=== PATIENT | male | born 1985 | race Caucasian/White ===

== ENCOUNTER 2017-03-11 19:23 | Emergency (ER) | payer OTHER ==
[~2017-03-11] VITALS: Ht 182.9 cm; Wt 95.3 kg
[~2017-03-11 19:23] MED LIST: ACETAMINOPHEN-1 EAC1 PO; AFRIN15 ML NS; ALLEGRA ALLERG180 MG PO; AMOXICILLIN 50500 MG PO; AMOXICILLIN500 M1 PO; ASPIRIN325; AZITHROMYCIN 2250 MG PO; CARISOPRODOL 3350 MG PO; COUGH DROPS1 EAC1 MM; DIFLUCAN150 MG PO; DOXYCYCLINE 10100 MG PO; FLEXERIL PO; IBUPROFEN 600600 M1 PO; IBUPROFEN 800800 M1 PO; IBUPROFEN 800800 MG PO; KEFLEX250 MG PO; MEDROLDOSEPACK PO; MUCINEX TA600 MG/TA2 PO; NAPROSYN500 MG PO; NOHOMEMEDICATIONS; NORCO 5-325 TA1 EACH PO; PREDNISONE 10 M10 M1 PO; PREDNISONE 20 M20 M1 PO; PROAIR HFA8.5 GM INH; ROBAXIN500 MG PO; ROBITUSSIN100 MG/53 PO; SILVADENE20 GM TP; TORADOL 10 MG T10 MG PO; TRAMADOL 50 MG50 MG PO; ULTRAM 50MG TAB50 MG PO; VENTOLIN HFA 1818 GM INH; VENTOLIN17 GM INH; VIBRAMYCIN 100100 MG PO; VICODIN 5-5001 EACH PO; XANAX 0.5 MG0.5 M1 PO; ZOFRAN 4 MG ORAL4 M1 DIS; ZPAK PO
[2017-03-11 20:37] LABS: ABSOLUTE BASOPHILS 0.1 thou/uL (0.0-0.2); ABSOLUTE EOSINOPHILS 0.6 thou/uL (0.0-0.7); ABSOLUTE LYMPHOCYTES 1.9 thou/uL (0.8-5.3); ABSOLUTE MONOCYTES 0.9 thou/uL (0.0-1.2); BASOPHILS 0.6 %; EOSINOPHILS 5.2 %; HEMATOCRIT 47.9 % (42.0-52.0); HEMOGLOBIN 16.3 gm/dL (14.0-18.0); MCH 31.2 pg (26.0-34.0); MCV 91.7 fL (80.0-100.0); MONOCYTES 7.2 %; MPV 8.5 fl. (7.2-11.1); NUCLEATED RBCS 0 /100WBC; PLATELET COUNT* 210 thou/uL (150-400); RBC 5.22 mil/uL (4.50-6.00); RDW-CV 14.7 % (10.5-14.5); WBC 12.6 thou/uL (4.0-11.0)
[2017-03-11 20:47] LABS: CALCIUM 8.9 mg/dL (8.5-10.1); POTASSIUM 3.5 mmol/L (3.5-5.1)
[2017-03-11 20:57] LABS: ALBUMIN 3.8 g/dL (3.4-5.0); TOTAL BILIRUBIN 0.3 mg/dL (<0.1-1.0); TOTAL PROTEIN 7.6 g/dL (6.4-8.2)
[2017-03-11] MEDS ORDERED: CITRATE OF MAG296 ML PO (21:08)
[2017-03-11 21:23] VITALS: BP 115/74
== END 2017-03-11 21:24 | disposition home or self-care (01) ==
LOC: M.ERS 19:23
PROVIDERS: Physician Assistant
DX: K59.00 Constipation, unspecified (principal); R10.84 Generalized abdominal pain

== ENCOUNTER 2017-04-22 14:53 | Emergency (ER) | payer OTHER ==
[~2017-04-22] VITALS: Ht 182.9 cm; Wt 93.0 kg
[~2017-04-22 14:53] MED LIST changes: +CITRATE OF MAG296 ML PO
[2017-04-22] MEDS ORDERED: BACTRIM DS TAB1 EACH PO ×2 (17:17→17:19)
[2017-04-22] MEDS ORDERED: KEFLEX500 M1 PO ×2 (17:17→17:19)
[2017-04-22] MEDS ORDERED: NORCO 5-325 TA1 EACH PO ×2 (17:17→17:19)
[2017-04-22] MEDS ORDERED: IBUPROFEN 800800 MG PO ×2 (17:17→17:19)
[2017-04-22 17:50] VITALS: BP 122/83
== END 2017-04-22 17:51 | disposition home or self-care (01) ==
LOC: M.ERS 14:53
DX: L03.116 Cellulitis of left lower limb (principal); L02.416 Cutaneous abscess of left lower limb; F17.210 Nicotine dependence, cigarettes, uncomplicated

== ENCOUNTER 2017-06-23 18:43 | Emergency (ER) | payer OTHER ==
[~2017-06-23] VITALS: Ht 182.9 cm; Wt 90.7 kg
[~2017-06-23 18:43] MED LIST changes: +BACTRIM DS TAB1 EACH PO; +KEFLEX500 M1 PO
[2017-06-23 19:25] LABS: ABSOLUTE BASOPHILS 0.1 thou/uL (0.0-0.2); ABSOLUTE EOSINOPHILS 0.7 thou/uL (0.0-0.7); ABSOLUTE LYMPHOCYTES 1.9 thou/uL (0.8-5.3); ABSOLUTE MONOCYTES 0.5 thou/uL (0.0-1.2); BASOPHILS 1.1 %; EOSINOPHILS 9.8 %; HEMATOCRIT 48.3 % (42.0-52.0); HEMOGLOBIN 16.6 gm/dL (14.0-18.0); LYMPHOCYTES 26.6 %; MCH 31.7 pg (26.0-34.0); MCHC 34.4 g/dL (28.0-37.0); MCV 92.2 fL (80.0-100.0); MPV 8.8 fl. (7.2-11.1); NUCLEATED RBCS 0 /100WBC; PLATELET COUNT* 207 thou/uL (150-400); POLYS 55.5 %; RBC 5.24 mil/uL (4.50-6.00); WBC 7.2 thou/uL (4.0-11.0)
[2017-06-23 19:37] LABS: ANION GAP 7 mmol/L (7-16); BUN 12 mg/dL (7-18); CALCIUM 8.7 mg/dL (8.5-10.1); CHLORIDE 106 mmol/L (98-107); CO2 30 mmol/L (21-32); GLUCOSE 89 mg/dL (70-99); SODIUM 143 mmol/L (136-145)
[2017-06-23 19:44] LABS: ALBUMIN 3.9 g/dL (3.4-5.0); ALKALINE PHOSPHATASE 96 U/L (46-116); NT-PRO BRAIN NAT PEPTIDE 8 pg/mL (<300); SGOT 16 U/L (15-37); SGPT 25 U/L (30-65); TOTAL BILIRUBIN 0.6 mg/dL (<0.1-1.0); TOTAL PROTEIN 7.5 g/dL (6.4-8.2); TROPONIN-I LEVEL <0.06 ng/mL (<0.06)
[2017-06-23 20:15] VITALS: BP 117/78
--- NOTE | 2017-06-24 11:17 | EKG ---
[place] [address] ELECTROCARDIOGRAM REPORT Name: FLORENCIO PATTERSON [id number] Admission: 06/23/17 Attend Phys: Discharge: 06/23/17 Date of : [birth year] Report #: [id number] THIS REPORT FOR: //name// [facility] Test Date: 2017-06-23 Test Time: 18:53:38 Pat Name: FLORENCIO PATTERSON Department: Room: Gender: M Air Quality Specialist: ANIRUDH : 1985 Requested By: Sravani Lee Order Number: [id number] MD: Giuliano Celaya Measurements Intervals [place] Rate: 75 P: 5 UT: 114 QRS: 31 QRSD: 90 T: 40 QT: 353 QTc: 395 Interpretive Statements Sinus rhythm Borderline short UT interval Compared to ECG 01/31/2016 08:46:23 Sinus tachycardia no longer present ST (T wave) deviation no longer present Electronically Signed On 06-24-2017 11:17:47 CDT by Giuliano Celaya [email or web address] <ELECTRONICALLY SIGNED> By: Giuliano Celaya MD, [facility] 06/24/17 1117 1853 52 Giuliano Celaya MD, [facility] /EPI
== END 2017-06-23 20:23 | disposition home or self-care (01) ==
LOC: M.ERS 18:43
PROVIDERS: Physician Assistant
DX: R07.9 Chest pain, unspecified (principal); R20.2 Paresthesia of skin; F17.210 Nicotine dependence, cigarettes, uncomplicated

== ENCOUNTER 2017-07-22 07:00 | Emergency (ER) | payer OTHER ==
[~2017-07-22] VITALS: Ht 182.9 cm; Wt 85.7 kg
[2017-07-22] MEDS ORDERED: Magic Mouthwash PO (07:48)
[2017-07-22] MEDS ORDERED: IBUPROFEN 800800 MG PO (07:48)
[2017-07-22 07:53] VITALS: BP 136/91
== END 2017-07-22 07:53 | disposition home or self-care (01) ==
LOC: M.ERS 07:00
DX: J02.9 Acute pharyngitis, unspecified (principal); F17.210 Nicotine dependence, cigarettes, uncomplicated

== ENCOUNTER 2017-08-15 10:32 | Emergency (ER) | payer OTHER ==
[~2017-08-15] VITALS: Ht 182.9 cm; Wt 86.2 kg
[~2017-08-15 10:32] MED LIST changes: +Magic Mouthwash PO
[2017-08-15] MEDS ORDERED: NOHOMEMEDICATIONS (10:41)
[2017-08-15 12:30] VITALS: BP 126/85
== END 2017-08-15 12:31 | disposition home or self-care (01) ==
LOC: M.ERS 10:32
DX: R51 Headache (principal); F17.210 Nicotine dependence, cigarettes, uncomplicated

== ENCOUNTER 2017-08-30 16:13 | Emergency (ER) | payer OTHER ==
[~2017-08-30] VITALS: Ht 182.9 cm; Wt 88.0 kg
[2017-08-30 17:33] LABS: URINE BILIRUBIN NEGATIVE (Negative); URINE BLOOD NEGATIVE (Negative); URINE CLARITY CLEAR; URINE COLOR YELLOW; URINE GLUCOSE-RANDOM NEGATIVE (Negative); URINE KETONES NEGATIVE (Negative); URINE LEUKOCYTES-REFLEX NEGATIVE (Negative); URINE NITRITE-REFLEX NEGATIVE (Negative); URINE PROTEIN NEGATIVE (Negative); URINE UROBILINOGEN 0.2 E.U./dl (0.2-1.0)
[2017-08-30 17:36] LABS: ABSOLUTE BASOPHILS 0.1 thou/uL (0.0-0.2); ABSOLUTE EOSINOPHILS 0.6 thou/uL (0.0-0.7); ABSOLUTE LYMPHOCYTES 2.5 thou/uL (0.8-5.3); ABSOLUTE MONOCYTES 0.5 thou/uL (0.0-1.2); ABSOLUTE NEUTROPHILS 4.2 thou/uL (1.6-8.1); BASOPHILS 0.7 %; EOSINOPHILS 7.4 %; HEMATOCRIT 49.7 % (42.0-52.0); HEMOGLOBIN 16.9 gm/dL (14.0-18.0); LYMPHOCYTES 31.8 %; MCH 31.4 pg (26.0-34.0); MCHC 34.1 g/dL (28.0-37.0); MONOCYTES 6.1 %; MPV 8.6 fl. (7.2-11.1); NUCLEATED RBCS 0 /100WBC; PLATELET COUNT* 221 thou/uL (150-400); WBC 7.8 thou/uL (4.0-11.0)
[2017-08-30 17:47] LABS: CREATININE 0.9 mg/dL (0.6-1.3); POTASSIUM 3.9 mmol/L (3.5-5.1)
[2017-08-30 17:57] LABS: ALBUMIN 4.1 g/dL (3.4-5.0); TOTAL BILIRUBIN 0.4 mg/dL (<0.1-1.0); TOTAL PROTEIN 8.1 g/dL (6.4-8.2)
[2017-08-30 18:12] VITALS: BP 133/74
[2017-08-31 07:07] LABS: HEPATITIS B SURFACE AG Negative (Negative)
== END 2017-08-30 18:12 | disposition home or self-care (01) ==
LOC: M.ERS 16:13
PROVIDERS: Physician Assistant
DX: R53.83 Other fatigue (principal); Z70.8 Other sex counseling; F41.9 Anxiety disorder, unspecified; F17.210 Nicotine dependence, cigarettes, uncomplicated

== ENCOUNTER 2017-09-01 10:47 | Emergency (ER) | payer OTHER ==
[~2017-09-01] VITALS: Ht 182.9 cm; Wt 88.0 kg
[2017-09-01 11:25] LABS: ABSOLUTE BASOPHILS 0.1 thou/uL (0.0-0.2); ABSOLUTE EOSINOPHILS 0.3 thou/uL (0.0-0.7); ABSOLUTE LYMPHOCYTES 1.9 thou/uL (0.8-5.3); ABSOLUTE MONOCYTES 0.4 thou/uL (0.0-1.2); ABSOLUTE NEUTROPHILS 2.4 thou/uL (1.6-8.1); BASOPHILS 1.4 %; EOSINOPHILS 6.4 %; HEMOGLOBIN 16.5 gm/dL (14.0-18.0); LYMPHOCYTES 37.3 %; MCH 31.2 pg (26.0-34.0); MCHC 34.4 g/dL (28.0-37.0); MCV 90.9 fL (80.0-100.0); MONOCYTES 8.2 %; MPV 8.7 fl. (7.2-11.1); NUCLEATED RBCS 0 /100WBC; PLATELET COUNT* 206 thou/uL (150-400); POLYS 46.7 %; RBC 5.28 mil/uL (4.50-6.00); RDW-CV 13.5 % (10.5-14.5); WBC 5.1 thou/uL (4.0-11.0)
[2017-09-01 11:29] LABS: ANION GAP 5 mmol/L (7-16); BUN 18 mg/dL (7-18); CALCIUM 8.9 mg/dL (8.5-10.1); CHLORIDE 104 mmol/L (98-107); CO2 29 mmol/L (21-32); GLUCOSE 92 mg/dL (70-99); POTASSIUM 3.8 mmol/L (3.5-5.1); SODIUM 138 mmol/L (136-145)
[2017-09-01 11:36] LABS: ALBUMIN 3.9 g/dL (3.4-5.0); ALKALINE PHOSPHATASE 107 U/L (46-116); SGOT 21 U/L (15-37); SGPT 22 U/L (30-65); TOTAL BILIRUBIN 0.8 mg/dL (<0.1-1.0); TOTAL PROTEIN 7.7 g/dL (6.4-8.2); TROPONIN-I LEVEL <0.06 ng/mL (<0.06)
[2017-09-01 11:49] LABS: URINE BILIRUBIN NEGATIVE (Negative); URINE BLOOD NEGATIVE (Negative); URINE CLARITY CLEAR; URINE COLOR YELLOW; URINE GLUCOSE-RANDOM NEGATIVE (Negative); URINE KETONES NEGATIVE (Negative); URINE LEUKOCYTES-REFLEX NEGATIVE (Negative); URINE NITRITE-REFLEX NEGATIVE (Negative); URINE PROTEIN NEGATIVE (Negative); URINE SPECIFIC GRAVITY 1.025 (1.005-1.030); URINE UROBILINOGEN 0.2 E.U./dl (0.2-1.0)
[2017-09-01 11:57] LABS: AMP/METHAMP Negative (Negative); BARBITURATES Negative (Negative); BENZODIAZEPINES Negative (Negative); COCAINE Negative (Negative); METHADONE Negative (Negative); OPIATES Negative (Negative); PCP Negative (Negative); THC Negative (Negative)
[2017-09-01 12:31] VITALS: BP 126/79
--- NOTE | 2017-09-03 13:28 | EKG ---
[place] [address] ELECTROCARDIOGRAM REPORT Name: FLORENCIO PATTERSON Room: [facility]#: [id number] Admission: 09/01/17 Attend Phys: Discharge: 09/01/17 Date of : [birth year] Report #: [id number] THIS REPORT FOR: //name// [facility] ED Test Date: 2017-09-01 Test Time: 11:13:16 Pat Name: FLORENCIO PATTERSON Department: Room: Gender: M Medical Intern: Mamadou CASSIDY : 1985 Requested By: Ok Dukes Order Number: [id number] MD: Tono Guerrero Measurements Intervals [place] Rate: 61 P: 76 MS: 135 QRS: 44 QRSD: 81 T: 43 QT: 401 QTc: 404 Interpretive Statements Sinus rhythm ST elev, probable normal early repol pattern Compared to ECG 06/23/2017 18:53:38 ST (T wave) deviation now present Electronically Signed On 09-03-2017 13:28:34 CDT by Tono Guerrero [email or web address] <ELECTRONICALLY SIGNED> By: Tono Guerrero MD, [facility] 09/03/17 1328 1113 1113 Tono Guerrero MD, [facility] /EPI
== END 2017-09-01 12:32 | disposition home or self-care (01) ==
LOC: M.ERS 10:47
PROVIDERS: Emergency Medicine Emergency Medical Services
DX: F07.81 Postconcussional syndrome (principal); F41.9 Anxiety disorder, unspecified; F17.210 Nicotine dependence, cigarettes, uncomplicated

== ENCOUNTER 2017-11-25 19:13 | Emergency (ER) | payer OTHER ==
[~2017-11-25] VITALS: Ht 182.9 cm; Wt 90.7 kg
[2017-11-25 20:17] LABS: ABSOLUTE BASOPHILS 0.1 thou/uL (0.0-0.2); ABSOLUTE EOSINOPHILS 0.4 thou/uL (0.0-0.7); ABSOLUTE LYMPHOCYTES 2.5 thou/uL (0.8-5.3); ABSOLUTE MONOCYTES 0.7 thou/uL (0.0-1.2); ABSOLUTE NEUTROPHILS 4.2 thou/uL (1.6-8.1); BASOPHILS 1.2 %; EOSINOPHILS 5.6 %; HEMATOCRIT 50.2 % (42.0-52.0); HEMOGLOBIN 17.1 gm/dL (14.0-18.0); LYMPHOCYTES 31.8 %; MCV 91.2 fL (80.0-100.0); MONOCYTES 8.5 %; MPV 8.6 fl. (7.2-11.1); NUCLEATED RBCS 0 /100WBC; PLATELET COUNT* 222 thou/uL (150-400); POLYS 52.9 %; RDW-CV 14.2 % (10.5-14.5); WBC 7.9 thou/uL (4.0-11.0)
[2017-11-25 20:23] LABS: CALCIUM 8.9 mg/dL (8.5-10.1); CREATININE 0.9 mg/dL (0.6-1.3); POTASSIUM 3.8 mmol/L (3.5-5.1)
[2017-11-25 20:28] LABS: ALBUMIN 4.3 g/dL (3.4-5.0); TOTAL BILIRUBIN 0.6 mg/dL (<0.1-1.0); TOTAL PROTEIN 8.4 g/dL (6.4-8.2)
[2017-11-25 21:05] VITALS: BP 144/86
--- NOTE | 2017-11-26 12:58 | EKG ---
[place] [address] ELECTROCARDIOGRAM REPORT Name: FLORENCIO PATTERSON Room: [facility]#: [id number] Admission: 11/25/17 Attend Phys: Discharge: 11/25/17 Date of : [birth year] Report #: [id number] THIS REPORT FOR: //name// [facility] ED Test Date: 2017-11-25 Test Time: 20:19:51 Pat Name: FLORENCIO PATTERSON Department: Room: Gender: M Electric Detector Operator: THELMA : 1985 Requested By: Anna Snider Order Number: [id number] MD: Rudy Leyva Measurements Intervals [place] Rate: 71 P: 70 VA: 142 QRS: 37 QRSD: 84 T: 40 QT: 407 QTc: 443 Interpretive Statements Sinus rhythm Compared to ECG 09/01/2017 11:13:16 ST (T wave) deviation no longer present Electronically Signed On 11-26-2017 12:58:31 CDT by Rudy Leyva [email or web address] <ELECTRONICALLY SIGNED> By: Rudy Leyva MD, [facility] 11/26/17 1258 18 18 Rudy Leyva MD, FACC /EPI
== END 2017-11-25 21:05 | disposition home or self-care (01) ==
LOC: M.ERS 19:13
PROVIDERS: Nurse Practitioner Family
DX: R53.83 Other fatigue (principal); R05 Cough; R06.02 Shortness of breath; F41.9 Anxiety disorder, unspecified; F17.210 Nicotine dependence, cigarettes, uncomplicated

== ENCOUNTER 2017-12-12 21:33 | Emergency (ER) | payer OTHER ==
[~2017-12-12] VITALS: Ht 182.9 cm; Wt 93.0 kg
--- NOTE | ~2017-12-12 | EKG ---
[place] [address] ELECTROCARDIOGRAM REPORT Name: FLORENCIO PATTERSON [id number] Admission: 12/12/17 Attend Phys: Discharge: 12/12/17 Date of : [birth year] Report #: [id number] THIS REPORT FOR: //name// [facility] ED Test Date: 2017-12-12 Test Time: 22:24:47 Pat Name: FLORENCIO PATTERSON Department: Room: Gender: M Accounts Payable Coordinator: RADHA : 1985 Requested By: Kae Diaz Order Number: [id number] MD: Measurements Intervals [place] Rate: 61 P: 64 MT: 135 QRS: 37 QRSD: 78 T: 37 QT: 383 QTc: 386 Interpretive Statements Sinus rhythm Baseline wander in lead(s) V5,V6 Compared to ECG 11/25/2017 20:19:51 No significant changes [email or web address] By: 23 2224 Epiphany EpiphanyMD /EPI
[2017-12-12 22:45] LABS: ABSOLUTE BASOPHILS 0.1 thou/uL (0.0-0.2); ABSOLUTE EOSINOPHILS 0.6 thou/uL (0.0-0.7); ABSOLUTE LYMPHOCYTES 2.6 thou/uL (0.8-5.3); ABSOLUTE MONOCYTES 0.7 thou/uL (0.0-1.2); ABSOLUTE NEUTROPHILS 4.1 thou/uL (1.6-8.1); BASOPHILS 0.7 %; HEMATOCRIT 48.8 % (42.0-52.0); HEMOGLOBIN 16.7 gm/dL (14.0-18.0); LYMPHOCYTES 32.5 %; MCH 31.2 pg (26.0-34.0); MCHC 34.2 g/dL (28.0-37.0); MCV 91.3 fL (80.0-100.0); MONOCYTES 8.8 %; MPV 8.9 fl. (7.2-11.1); NUCLEATED RBCS 0 /100WBC; PLATELET COUNT* 222 thou/uL (150-400); RBC 5.34 mil/uL (4.50-6.00); RDW-CV 13.8 % (10.5-14.5)
[2017-12-12 22:53] LABS: ANION GAP 5 mmol/L (7-16); BUN 16 mg/dL (7-18); CALCIUM 8.6 mg/dL (8.5-10.1); CHLORIDE 102 mmol/L (98-107); CO2 31 mmol/L (21-32); GLUCOSE 84 mg/dL (70-99); POTASSIUM 4.1 mmol/L (3.5-5.1); SODIUM 138 mmol/L (136-145)
[2017-12-12 23:04] LABS: ALBUMIN 3.9 g/dL (3.4-5.0); ALKALINE PHOSPHATASE 100 U/L (46-116); NT-PRO BRAIN NAT PEPTIDE 9 pg/mL (<300); SGOT 20 U/L (15-37); SGPT 28 U/L (30-65); TOTAL BILIRUBIN 0.6 mg/dL (<0.1-1.0); TOTAL PROTEIN 7.6 g/dL (6.4-8.2); TROPONIN-I LEVEL <0.06 ng/mL (<0.06)
[2017-12-12] MEDS ORDERED: BUTALB-APAP-CA1 EACH PO (23:42)
[2017-12-12 23:56] VITALS: BP 127/90
== END 2017-12-12 23:57 | disposition home or self-care (01) ==
LOC: M.ERS 21:33
PROVIDERS: Nurse Practitioner Family
DX: R53.82 Chronic fatigue, unspecified (principal); R07.89 Other chest pain; R51 Headache; F41.9 Anxiety disorder, unspecified; F17.210 Nicotine dependence, cigarettes, uncomplicated

== ENCOUNTER → 2017-12-16 | Outpatient (CLI) | payer OTHER ==
[~2017-12-16] MED LIST changes: +BUTALB-APAP-CA1 EACH PO
--- NOTE | 2017-12-16 14:05 | 2DMMODE ---
[place] [address] 2 D/M-MODE ECHOCARDIOGRAM Name: FLORENCIO PATTERSON Room: [facility]#: [id number] Admission: 12/16/17 Attend Phys: Giuliano Kingston, Discharge: Date of : [birth year] Date of Service: 12/16/17 1405 Report #: [id number] THIS REPORT FOR: //name// APPROVED REPORT Study performed: 12/16/2017 08:05:09 EXAM: Comprehensive 2D, Doppler, and color-flow Echocardiogram Patient Location: Out-Patient Status: routine BSA: 2.18 HR: 75 bpm BP: 132/80 mmHg Other Information Study Quality: Excellent Indications Dyspnea 2D Dimensions IVSd: 9.78 (7-11mm) LVOT Diam: 20.81 (18-24mm) LVDd: 52.75 mm PWd: 10.04 (7-11mm) Ascending Ao: 27.35 (22-36mm) LVDs: 38.40 (25-40mm) Aortic Root: 35.06 mm Volumes Left Atrial Volume (Systole) LA ESV Index: 21.30 mL/m2 Aortic Valve AoV Peak Terell.: 1.11 m/s AO Peak Gr.: 4.89 mmHg LVOT Max P.00 mmHg AO Mean Gr.: 2.70 mmHg LVOT Mean P.09 mmHg LVOT Max V: 0.71 m/s AO V2 VTI: 21.77 cm LVOT Mean V: 0.49 m/s MARINA (VTI): 2.47 cm2 LVOT V1 VTI: 15.79 cm Mitral Valve E/A Ratio: 1.76 MV Decel. Time: 215.48 ms MV E Max Terell.: 0.75 m/s MV PHT: 62.49 [place] [address] 2 D/M-MODE ECHOCARDIOGRAM Name: FLORENCIO PATTERSON BONNIE Room: [facility]#: [id number] Admission: 12/16/17 Attend Phys: Giuliano Kingston, Discharge: Date of : 89 Date of Service: 12/16/17 1405 Report #: [id number] MVA (PHT): 3.52 cm2 TDI E/Lateral E': 4.17 E/Medial E': 5.00 Medial E' Terell.: 0.15 m/s Lateral E' Terell.: 0.18 m/s Pulmonary Valve PV Peak Terell.: 0.96 m/s PV Peak Gr.: 3.66 mmHg Tricuspid Valve RAP Estimate: 5.00 mmHg TR Peak Gr.: 15.88 mmHg RVSP: 20.88 mmHg PA Pressure: 20.88 mmHg Left Ventricle The left ventricle is normal size. There is normal LV segmental wall motion. There is normal left ventricular wall thickness. Left ventricular systolic function is normal. The left ventricular ejection fraction is within the normal range. LVEF is 50-55%. The left ventricular diastolic function is normal. Right Ventricle The right ventricle is normal size. The right ventricular systolic function is normal. Atria The left atrium size is normal. The right atrium size is normal. Aortic Valve The aortic valve is normal in structure. No aortic regurgitation is present. There is no aortic valvular stenosis. Mitral Valve The mitral valve is normal in structure. There is no mitral valve regurgitation noted. No evidence of mitral valve stenosis. Tricuspid Valve The tricuspid valve is normal in structure. Trace tricuspid regurgitation. Pulmonic Valve The pulmonary valve is normal in structure. [place] [address] 2 D/M-MODE ECHOCARDIOGRAM Name: FLORENCIO PATTERSON Room: [facility]#: [id number] Admission: 12/16/17 Attend Phys: Giuliano Kingston, Discharge: Date of : 89 Date of Service: 12/16/17 1405 Report #: [id number] Great Vessels The aortic root is normal in size. IVC is normal in size and collapses >50% with inspiration. Pericardium There is no pericardial effusion. <Conclusion> Left ventricular systolic function is normal. The left ventricular ejection fraction is within the normal range. <ELECTRONICALLY SIGNED> By: Giuliano Celaya MD, FACC 12/16/171404 04 04 Giuliano Celaya MD, FACC /INF
== END ==
LOC: M.CRD 07:24
DX: I37.1 Nonrheumatic pulmonary valve insufficiency (principal); J02.9 Acute pharyngitis, unspecified; J06.9 Acute upper respiratory infection, unspecified; R35.0 Frequency of micturition; R53.82 Chronic fatigue, unspecified

== ENCOUNTER → 2018-02-04 | Outpatient (CLI) | payer OTHER | LOC: M.MRI 06:55 | DX: R51 Headache (principal); R42 Dizziness and giddiness; R53.1 Weakness ==

== ENCOUNTER 2018-03-23 20:10 | Emergency (ER) | payer OTHER ==
[~2018-03-23] VITALS: Ht 182.9 cm; Wt 88.0 kg
[2018-03-23 20:17] VITALS: BP 135/89
[2018-03-23] MEDS ORDERED: KEFLEX500 M1 PO (20:29)
== END 2018-03-23 20:39 | disposition home or self-care (01) ==
LOC: M.ERS 20:10
DX: L03.032 Cellulitis of left toe (principal); L03.031 Cellulitis of right toe; F17.210 Nicotine dependence, cigarettes, uncomplicated; F41.9 Anxiety disorder, unspecified

== ENCOUNTER 2018-07-21 11:36 | Emergency (ER) | payer OTHER ==
[~2018-07-21] VITALS: Ht 208.3 cm; Wt 86.2 kg
[2018-07-21] MEDS ORDERED: PREDNISONE 2.52.5 MG PO (11:47)
[2018-07-21] MEDS ORDERED: ROBAXIN500 MG PO (11:47)
[2018-07-21] MEDS ORDERED: DOXYCYCLINE 10100 M1 PO (11:48)
[2018-07-21] MEDS ORDERED: CLARITIN10 MG PO (11:48)
[2018-07-21 12:10] LABS: ABSOLUTE BASOPHILS 0.1 thou/uL (0.0-0.2); ABSOLUTE EOSINOPHILS 0.1 thou/uL (0.0-0.7); ABSOLUTE LYMPHOCYTES 1.7 thou/uL (0.8-5.3); ABSOLUTE MONOCYTES 0.7 thou/uL (0.0-1.2); ABSOLUTE NEUTROPHILS 7.1 thou/uL (1.6-8.1); BASOPHILS 0.8 %; EOSINOPHILS 0.5 %; HEMATOCRIT 49.6 % (42.0-52.0); HEMOGLOBIN 16.4 gm/dL (14.0-18.0); LYMPHOCYTES 17.6 %; MCH 29.9 pg (26.0-34.0); MCV 90.6 fL (80.0-100.0); MONOCYTES 7.3 %; MPV 8.9 fl. (7.2-11.1); NUCLEATED RBCS 0 /100WBC; PLATELET COUNT* 267 thou/uL (150-400); POLYS 73.8 %; RBC 5.48 mil/uL (4.50-6.00); RDW-CV 14.5 % (10.5-14.5); WBC 9.6 thou/uL (4.0-11.0)
[2018-07-21 12:15] LABS: CALCIUM 9.1 mg/dL (8.5-10.1); CREATININE 1.1 mg/dL (0.6-1.3); POTASSIUM 3.5 mmol/L (3.5-5.1)
[2018-07-21 12:20] LABS: TOTAL BILIRUBIN 0.7 mg/dL (<0.1-1.0); TOTAL PROTEIN 8.3 g/dL (6.4-8.2)
[2018-07-21 13:16] VITALS: BP 119/55
== END 2018-07-21 13:21 | disposition home or self-care (01) ==
LOC: M.ERS 11:36
PROVIDERS: Nurse Practitioner Family
DX: R51 Headache (principal); F41.9 Anxiety disorder, unspecified; F17.210 Nicotine dependence, cigarettes, uncomplicated

== ENCOUNTER 2018-07-26 09:08 | Emergency (ER) | payer OTHER ==
[~2018-07-26] VITALS: Ht 182.9 cm; Wt 88.5 kg
[~2018-07-26 09:08] MED LIST changes: +CLARITIN10 MG PO; +DOXYCYCLINE 10100 M1 PO; +PREDNISONE 2.52.5 MG PO
[2018-07-26 09:39] VITALS: BP 139/75
== END 2018-07-26 09:41 | disposition home or self-care (01) ==
LOC: M.ERS 09:08
DX: R51 Headache (principal); F41.9 Anxiety disorder, unspecified; F17.210 Nicotine dependence, cigarettes, uncomplicated

== ENCOUNTER → 2018-07-31 | Outpatient (CLI) | payer OTHER | LOC: M.RAD 16:57 | DX: R53.83 Other fatigue (principal); R61 Generalized hyperhidrosis; R06.02 Shortness of breath ==

== ENCOUNTER 2018-08-09 08:02 | Emergency (ER) | payer OTHER ==
[~2018-08-09] VITALS: Ht 182.9 cm; Wt 85.3 kg
[2018-08-09] MEDS ORDERED: SINGULAIR 10 MG10 M1 PO (08:14)
[2018-08-09] MEDS ORDERED: BUSPIRONE HCL10 MG PO (08:14)
[2018-08-09 08:36] VITALS: BP 137/98
== END 2018-08-09 08:37 | disposition home or self-care (01) ==
LOC: M.ERS 08:02
DX: G44.209 Tension-type headache, unspecified, not intractable (principal); F17.210 Nicotine dependence, cigarettes, uncomplicated; F41.9 Anxiety disorder, unspecified

== ENCOUNTER → 2018-08-11 | Outpatient (CLI) | payer OTHER ==
[~2018-08-11] MED LIST changes: +BUSPIRONE HCL10 MG PO; +SINGULAIR 10 MG10 M1 PO
--- NOTE | 2018-08-11 14:12 | 2DMMODE ---
[place] [address] 2 D/M-MODE ECHOCARDIOGRAM Name: FLORENCIO PATTERSON Room: [facility]#: [id number] Admission: 08/11/18 Attend Phys: Rosie JOHNSON Faust Discharge: Date of : 89 Date of Service: 08/11/18 1412 Report #: [id number] THIS REPORT FOR: //name// APPROVED REPORT Study performed: 08/11/2018 08:24:58 EXAM: Comprehensive 2D, Doppler, and color-flow Echocardiogram Patient Location: Out-Patient BSA: 2.07 HR: 65 bpm BP: 132/80 mmHg Other Information Study Quality: Good Indications Dyspnea 2D Dimensions IVSd: 7.16 (7-11mm) LVOT Diam: 20.03 (18-24mm) LVDd: 53.00 mm PWd: 9.50 (7-11mm) Ascending Ao: 26.96 (22-36mm) LVDs: 38.12 (25-40mm) Aortic Root: 30.37 mm Volumes Left Atrial Volume (Systole) LA ESV Index: 23.90 mL/m2 Aortic Valve AoV Peak Terell.: 1.00 m/s AO Peak Gr.: 4.02 mmHg LVOT Max P.75 mmHg AO Mean Gr.: 1.96 mmHg LVOT Mean P.35 mmHg LVOT Max V: 0.83 m/s AO V2 VTI: 19.25 cm LVOT Mean V: 0.54 m/s MARINA (VTI): 2.91 cm2 LVOT V1 VTI: 17.80 cm Mitral Valve E/A Ratio: 3.64 MV Decel. Time: 140.89 ms MV E Max Terell.: 0.92 m/s MV PHT: 40.86 ms MVA (PHT): 5.38 [place] [address] 2 D/M-MODE ECHOCARDIOGRAM Name: FLORENCIO PATTERSON Room: [facility]#: [id number] Admission: 08/11/18 Attend Phys: Rosie JOHNSON Faust Discharge: Date of : 89 Date of Service: 08/11/18 1412 Report #: [id number] TDI E/Lateral E': 4.84 E/Medial E': 6.57 Medial E' Terell.: 0.14 m/s Lateral E' Terell.: 0.19 m/s Pulmonary Valve PV Peak Terell.: 0.84 m/s PV Peak Gr.: 2.80 mmHg Tricuspid Valve RAP Estimate: 5.00 mmHg TR Peak Gr.: 16.37 mmHg RVSP: 21.37 mmHg PA Pressure: 21.37 mmHg Left Ventricle The left ventricle is normal size. There is normal LV segmental wall motion. There is normal left ventricular wall thickness. Left ventricular systolic function is normal. The left ventricular ejection fraction is within the normal range. LVEF is 50-55%. The left ventricular diastolic function is normal. Right Ventricle The right ventricle is normal size. The right ventricular systolic function is normal. Atria The left atrium size is normal. The right atrium size is normal. Aortic Valve The aortic valve is normal in structure. No aortic regurgitation is present. There is no aortic valvular stenosis. Mitral Valve The mitral valve is normal in structure. There is no mitral valve regurgitation noted. No evidence of mitral valve stenosis. Tricuspid Valve The tricuspid valve is normal in structure. Mild tricuspid regurgitation. Pulmonic Valve The pulmonary valve is normal in structure. Mild pulmonic reg[place]itation[place] [address] 2 D/M-MODE ECHOCARDIOGRAM Name: FLORENCIO PATTERSON Room: [facility]#: [id number] Admission: 08/11/18 Attend Phys: Rosie JOHNSON Faust Discharge: Date of : 89 Date of Service: 08/11/18 1412 Report #: [id number] The aortic root is normal in size. IVC is normal in size and collapses >50% with inspiration. Pericardium There is no pericardial effusion. <Conclusion> Left ventricular systolic function is normal. The left ventricular ejection fraction is within the normal range. <ELECTRONICALLY SIGNED> By: Giuliano Celaya MD, [facility] 08/11/18 141 11 11 Giulinao Celaya MD, [facility] /INF
== END ==
LOC: M.CRD 07:59
DX: I08.8 Other rheumatic multiple valve diseases (principal); Z82.49 Family history of ischemic heart disease and other diseases of the circulatory system

== ENCOUNTER → 2018-08-21 | Outpatient (CLI) | payer OTHER | LOC: M.RAD 15:55 | DX: M48.02 Spinal stenosis, cervical region (principal) ==

== ENCOUNTER → 2018-09-22 | Outpatient (CLI) | payer OTHER | LOC: M.MRI 16:08 | DX: M50.222 Other cervical disc displacement at C5-C6 level (principal); G89.29 Other chronic pain; M54.6 Pain in thoracic spine; R53.1 Weakness ==

== ENCOUNTER → 2018-09-24 | Outpatient (CLI) | payer OTHER | LOC: M.MRI 09-16 14:50 | DX: M40.294 Other kyphosis, thoracic region (principal); M51.84 Other intervertebral disc disorders, thoracic region; G89.29 Other chronic pain ==

== ENCOUNTER → 2018-10-15 | Outpatient (CLI) | payer OTHER | LOC: M.ULTRA 09:00 | DX: R10.9 Unspecified abdominal pain (principal); R19.7 Diarrhea, unspecified; R11.0 Nausea ==

== ENCOUNTER 2018-12-06 02:40 | Emergency (ER) | payer OTHER ==
[~2018-12-06] VITALS: Ht 182.9 cm; Wt 86.2 kg
[2018-12-06 02:44] VITALS: BP 154/75
== END 2018-12-06 02:56 | disposition home or self-care (01) ==
LOC: M.ERS 02:40
DX: L98.9 Disorder of the skin and subcutaneous tissue, unspecified (principal); F41.9 Anxiety disorder, unspecified; F17.210 Nicotine dependence, cigarettes, uncomplicated

== ENCOUNTER 2019-03-02 05:46 | Emergency (ER) | payer OTHER ==
[~2019-03-02] VITALS: Ht 182.9 cm; Wt 88.0 kg
[2019-03-02] MEDS ORDERED: ISOTRETINOIN (05:56)
[2019-03-02 06:13] LABS: ABSOLUTE BASOPHILS 0.1 thou/uL (0.0-0.2); ABSOLUTE EOSINOPHILS 0.4 thou/uL (0.0-0.7); ABSOLUTE LYMPHOCYTES 2.2 thou/uL (0.8-5.3); ABSOLUTE MONOCYTES 0.7 thou/uL (0.0-1.2); ABSOLUTE NEUTROPHILS 3.5 thou/uL (1.6-8.1); BASOPHILS 1.1 %; EOSINOPHILS 5.5 %; HEMATOCRIT 49.1 % (42.0-52.0); HEMOGLOBIN 17.1 gm/dL (14.0-18.0); LYMPHOCYTES 32.4 %; MCH 31.2 pg (26.0-34.0); MCHC 34.8 g/dL (28.0-37.0); MCV 89.6 fL (80.0-100.0); MONOCYTES 9.6 %; MPV 8.1 fl. (7.2-11.1); NUCLEATED RBCS 0 /100WBC; PLATELET COUNT* 219 thou/uL (150-400); POLYS 51.4 %; RBC 5.48 mil/uL (4.50-6.00); RDW-CV 13.9 % (10.5-14.5); WBC 6.9 thou/uL (4.0-11.0)
[2019-03-02 06:24] LABS: ANION GAP 4 mmol/L (7-16); BUN 17 mg/dL (7-18); CALCIUM 8.5 mg/dL (8.5-10.1); CHLORIDE 104 mmol/L (98-107); CO2 32 mmol/L (21-32); CREATININE 1.2 mg/dL (0.6-1.3); GLUCOSE 103 mg/dL (70-99); POTASSIUM 4.1 mmol/L (3.5-5.1); SODIUM 140 mmol/L (136-145)
[2019-03-02 06:34] LABS: ALBUMIN 3.8 g/dL (3.4-5.0); ALKALINE PHOSPHATASE 116 U/L (46-116); LIPASE 76 U/L (73-393); MAGNESIUM 1.9 mg/dL (1.8-2.4); NT-PRO BRAIN NAT PEPTIDE < 5 pg/mL (<300); SGOT 23 U/L (15-37); SGPT 32 U/L (30-65); TOTAL BILIRUBIN 0.8 mg/dL (<0.1-1.0); TOTAL PROTEIN 7.7 g/dL (6.4-8.2)
[2019-03-02] MEDS ORDERED: NORCO 5-325 TA1 EAC1 PO (06:56)
[2019-03-02 07:06] VITALS: BP 126/75
--- NOTE | 2019-03-02 10:08 | EKG ---
[place] [address] ELECTROCARDIOGRAM REPORT Name: FLORENCIO PATTERSON [id number] Admission: 03/02/19 Attend Phys: Discharge: 03/02/19 Date of : [birth year] Report #: [id number] THIS REPORT FOR: //name// [facility] ED Test Date: 2019-03-02 Test Time: 05:55:37 Pat Name: FLORENCIO PATTERSON Department: Room: Gender: M Director Of Healthcare Systems: : 1985 Requested By: Ok Dukes Order Number: [id number] MD: Giuliano Celaya Measurements Intervals [place] Rate: 87 P: 73 SC: 135 QRS: 33 QRSD: 84 T: 45 QT: 354 QTc: 426 Interpretive Statements Sinus rhythm ST elev, probable normal early repol pattern Compared to ECG 12/12/2017 22:24:47 no change Electronically Signed On 03-02-2019 10:07:27 CHEMICAL RECLAMATION EQUIPMENT OPERATOR by Giuliano Celaya [email or web address] <ELECTRONICALLY SIGNED> By: Giuliano Celaya MD, [facility] 03/02/19 [facility] [phone] Giuliano Celaya MD, FACC /EPI
== END 2019-03-02 07:09 | disposition home or self-care (01) ==
LOC: M.ERS 05:46
PROVIDERS: Emergency Medicine Emergency Medical Services
DX: R09.1 Pleurisy (principal); R07.89 Other chest pain; F41.9 Anxiety disorder, unspecified

== ENCOUNTER 2019-03-29 09:59 | Emergency (ER) | payer OTHER ==
[~2019-03-29] VITALS: Ht 182.9 cm; Wt 88.9 kg
--- NOTE | ~2019-03-29 | EKG ---
[place] [address] ELECTROCARDIOGRAM REPORT Name: FLORENCIO PATTESRON Room: [facility]#: [id number] Admission: 03/29/19 Attend Phys: Discharge: Date of : 89 Date of Service: 03/29/19 104 Report #: [id number] THIS REPORT FOR: cc: Rosie Faust NP, Tammy NP Epiphany, Epiphany MD ~ THIS REPORT FOR: //name// [facility] ED Test Date: 2019-03-29 Test Time: 10:42:52 Pat Name: FLORENCIO PATTERSON Department: Room: Gender: M Emerging Technologies Director: [facility] : 1985 Requested By: Sravani Lee Order Number: [id number] MD: Measurements Intervals [place] Rate: 71 P: 73 LA: 140 QRS: 42 QRSD: 96 T: 48 QT: 374 QTc: 407 Interpretive Statements Sinus rhythm Compared to ECG 03/02/2019 05:55:37 ST (T wave) deviation no longer present [email or web address] By: 41 1042 Epiphany Epiphany, [place] /EPI
[~2019-03-29 09:59] MED LIST changes: +ISOTRETINOIN; +NORCO 5-325 TA1 EAC1 PO
[2019-03-29 10:54] LABS: URINE BILIRUBIN NEGATIVE (Negative); URINE BLOOD NEGATIVE (Negative); URINE CLARITY CLEAR; URINE COLOR YELLOW; URINE GLUCOSE-RANDOM NEGATIVE (Negative); URINE KETONES NEGATIVE (Negative); URINE LEUKOCYTES NEGATIVE (Negative); URINE NITRITE NEGATIVE (Negative); URINE PROTEIN NEGATIVE (Negative); URINE SPECIFIC GRAVITY 1.015 (1.005-1.030); URINE UROBILINOGEN 0.2 E.U./dl (0.2-1.0)
[2019-03-29 11:14] LABS: ABSOLUTE BASOPHILS 0.1 thou/uL (0.0-0.2); ABSOLUTE EOSINOPHILS 0.3 thou/uL (0.0-0.7); ABSOLUTE LYMPHOCYTES 1.5 thou/uL (0.8-5.3); ABSOLUTE MONOCYTES 0.4 thou/uL (0.0-1.2); ABSOLUTE NEUTROPHILS 2.4 thou/uL (1.6-8.1); BASOPHILS 1.3 %; HEMATOCRIT 46.5 % (42.0-52.0); HEMOGLOBIN 16.2 gm/dL (14.0-18.0); MCH 31.5 pg (26.0-34.0); MCHC 34.8 g/dL (28.0-37.0); MCV 90.5 fL (80.0-100.0); MONOCYTES 8.7 %; MPV 8.8 fl. (7.2-11.1); NUCLEATED RBCS 0 /100WBC; PLATELET COUNT* 234 thou/uL (150-400); RBC 5.14 mil/uL (4.50-6.00); RDW-CV 13.7 % (10.5-14.5); WBC 4.7 thou/uL (4.0-11.0)
[2019-03-29 11:22] LABS: CALCIUM 8.6 mg/dL (8.5-10.1); POTASSIUM 3.9 mmol/L (3.5-5.1)
[2019-03-29 11:26] LABS: ALBUMIN 3.7 g/dL (3.4-5.0); MAGNESIUM 1.9 mg/dL (1.8-2.4); TOTAL BILIRUBIN 0.6 mg/dL (<0.1-1.0); TOTAL PROTEIN 7.5 g/dL (6.4-8.2)
[2019-03-29 11:46] LABS: INFLUENZA A ANTIGEN Negative (Negative); INFLUENZA B ANTIGEN Negative (Negative)
[2019-03-29 12:04] VITALS: BP 130/90
[2019-03-29 12:28] LABS: ESR (SEDRATE) 0 mm/hr (0-15)
== END 2019-03-29 12:04 | disposition home or self-care (01) ==
LOC: M.ERS 09:59
PROVIDERS: Physician Assistant
DX: R53.83 Other fatigue (principal); F41.9 Anxiety disorder, unspecified

== ENCOUNTER → 2019-05-12 | Outpatient (CLI) | payer OTHER ==
--- NOTE | 2019-05-12 13:21 | CARDNUC ---
[place] [address] CARDIAC NUCLEAR IMAGING REPORT Name: FLORENCIO PATTERSON Room: [facility]#: [id number] Admission: 05/12/19 Attend Phys: Travis Schultz, Discharge: Date of : [birth year] Date of Service: 05/12/19 1319 Report #: [id number] THIS REPORT FOR: cc: Rosie Faust NP, Tammy NP Liston, Michael J. MD [facility] ~ APPROVED REPORT Study performed: 05/12/2019 09:30:15 Exam: Nuclear Stress Test Indication: Chest pain, Dyspnea, Fatigue. Patient Location: Out-Patient Stress Tech: Ese Meyer Stress Nurse: Nguyen Solano R.N. NM Tech:LOU Garcias Ht: 6 ft 0 in Wt: 186 lbs BSA: 2.07 m2 BMI: 25.22 Medical History Medical History: Angina, Fatigue, No history of CAD, SOB, Weakness, increased diaphoresis, pallor, flushed/warmth feeling in legs, VIRI. Medications: No cardiac meds Allergies: No known drug allergies Cardiac Risk Factors: FHX of CAD, SOB, Past Smoker. Previous Cardiac Procedures: None Pretest Chest Pain Characteristics: No chest pain Exercise History: Physically active Physical Disabilities: None Meds Held (24 hrs): None Stress Test Details Stress Test: Exercise stress testing was performed using a Robby protocol. HR Resting HR: 77 bpm Max Heart Rate (APMHR): 189 bpm Max HR Achieved: 197 bpm Target HR (85% APMHR): 160 bpm % of APMHR: 104 Recovery HR: 112 bpm HR response to stress: Normal [place] [address] CARDIAC NUCLEAR IMAGING REPORT Name: FLORENCIO PATTERSON Room: [facility]#: [id number] Admission: 05/12/19 Attend Phys: Travis Schultz, Discharge: Date of : [birth year] Date of Service: 05/12/19 1319 Report #: [id number] Resting BP: 128/84 mmHg Max BP: 211/60 mmHg BP response to stress: Abnormal hypertensive response to stress. ECG Resting ECG: Sinus Rhythm Stress ECG: Sinus Tachycardia ST Change: None Arrhythmia: None Recovery ECG: Sinus Rhythm Recovery ST Change: None Recovery Arrhythmia: None Clinical Reason for Termination: Maximal effort, Patient Request, Completed protocol. Stress Symptoms: Dyspnea, Diaphoresis. Exercise duration: 15 min 00 sec Exercise capacity: 14.86 METs Overall Exercise Capacity for Age: Superior The patient tolerated standard Robby protocol exercise without significant cardiac symptoms. The patient exhibited good exercise tolerance. Nurse Comments A 33 YEAR OLD MALE PRESENTED FOR A ROBBY PROTOCOL NUCLEAR STRESS TEST R/T CHEST PAINS, DYSPNEA, PALLOR, INCREASED FATIGUE. TREADMILL WELL TOLERATED TO STAGE 5, EXERCISE CAPACITY SUPERIOR. RECOVERY UNREMARKABLE. PATIENT WAS ESCORTED BY STAFF TO NUCLEAR MEDICINE FOR IMAGING. PATIENT WAS STABLE AND STATED HE FELT GOOD AT THAT TIME. Stress ECG Conclusion The baseline 12-lead EKG shows sinus rhythm without significant ST segment or T wave abnormality. EKGs obtained during and post exercise showed sinus rhythm and sinus tachycardia with no significant ST segment or T wave changes when compared to baseline. There were no significant stress-induced arrhythmias. NM EXAM: Myocardial Perfusion REST/STRESS Imaging Protocol: Rest Tc-99m/Stress Tc-99m 1 day Resting Data Rest SPECT myocardial perfusion imaging was performed in supine position 30 minutes following the intravenous injection of 10.4 [place] [address] CARDIAC NUCLEAR IMAGING REPORT Name: FLORENCIO PATTERSON Room: [facility]#: [id number] Admission: 05/12/19 Attend Phys: Travis Schultz, Discharge: Date of : 89 Date of Service: 05/12/19 1319 Report #: [id number] of Tc-99m Sestamibi. Time of rest injection: 804 Date: 05/12/2019 The images were gated to evaluate regional wall motion and calculate left ventricular ejection fraction. Administration Route: IV Administration Site: Right Hand Exercise Stress At peak stress, the patient was injected intravenously with 33.0mCi of Tc-99m Sestamibi. Time of stress injection: 954 Date: 05/12/2019 Administration Route: IV Administration Site: Right Hand Gated Stress SPECT was performed 30 minutes after stress injection. The images were gated to evaluate regional wall motion and calculate left ventricular ejection fraction. Prone imaging was performed. Study Quality Study: Good Artifact: Mild Diaphragmatic artifact Study Data At rest, the left ventricular ejection fraction was 63%.. Post stress, the left ventricular ejection was 55%.. TID = 0.71. Perfusion Perfusion images obtained in the supine position at rest show photopenia in the inferior wall that is not as pronounced on supine stress images and completely resolved with post stress imaging suggesting diaphragmatic attenuation artifact. There were no other significant fixed or reversible defects. Wall Motion Normal left ventricular wall motion. Nuclear Conclusion ECG Findings: negative for ischemia Clinical Findings: negative for ischemia Nuclear Findings: negative for ischemia Exercise Capacity: normal Left Ventricular Function: normal Risk Study: low Perfusion images show no defect to [place] [address] CARDIAC NUCLEAR IMAGING REPORT Name: FLORENCIO PATTERSON Room: [facility]#: [id number] Admission: 05/12/19 Attend Phys: Travis Schultz, Discharge: Date of : 89 Date of Service: 05/12/19 1319 Report #: [id number] ventricular systolic function appears normal on gated studies. This is a low risk study. <Conclusion> The baseline 12-lead EKG shows sinus rhythm without significant ST segment or T wave abnormality. EKGs obtained during and post exercise showed sinus rhythm and sinus tachycardia with no significant ST segment or T wave changes when compared to baseline. There were no significant stress-induced arrhythmias. <ELECTRONICALLY SIGNED> By: Rudy Leyva MD, FACC 05/12/19 1319 1319 1319 Rudy Leyva MD, FACC /INF
== END ==
LOC: M.NUC 04-29 16:58
DX: R53.83 Other fatigue (principal); R07.9 Chest pain, unspecified; R06.00 Dyspnea, unspecified

== ENCOUNTER 2019-09-08 13:11 | Emergency (ER) | payer OTHER ==
[~2019-09-08] VITALS: Ht 182.9 cm; Wt 90.0 kg
[2019-09-08] MEDS ORDERED: WELLBUTRIN SR100 MG PO (13:27)
[2019-09-08 13:36] LABS: ABSOLUTE BASOPHILS 0.1 thou/uL (0.0-0.2); ABSOLUTE EOSINOPHILS 0.7 thou/uL (0.0-0.7); ABSOLUTE LYMPHOCYTES 1.8 thou/uL (0.8-5.3); ABSOLUTE MONOCYTES 0.5 thou/uL (0.0-1.2); ABSOLUTE NEUTROPHILS 3.3 thou/uL (1.6-8.1); BASOPHILS 1.2 %; EOSINOPHILS 10.3 %; HEMATOCRIT 47.1 % (42.0-52.0); HEMOGLOBIN 16.5 gm/dL (14.0-18.0); LYMPHOCYTES 28.5 %; MCH 31.7 pg (26.0-34.0); MCHC 34.9 g/dL (28.0-37.0); MCV 90.7 fL (80.0-100.0); MONOCYTES 8.2 %; MPV 8.2 fl. (7.2-11.1); NUCLEATED RBCS 0 /100WBC; PLATELET COUNT* 263 thou/uL (150-400); POLYS 51.8 %; RBC 5.19 mil/uL (4.50-6.00); RDW-CV 14.2 % (10.5-14.5); WBC 6.3 thou/uL (4.0-11.0)
[2019-09-08 13:48] LABS: APTT 25.1 Seconds (25.0-31.3); PROTIME 10.4 Seconds (9.20-11.50)
[2019-09-08 13:57] LABS: ALBUMIN 3.7 g/dL (3.4-5.0); CALCIUM 8.6 mg/dL (8.5-10.1); CREATININE 1.2 mg/dL (0.6-1.3); POTASSIUM 3.8 mmol/L (3.5-5.1); TOTAL BILIRUBIN 0.4 mg/dL (<0.1-1.0); TOTAL PROTEIN 7.6 g/dL (6.4-8.2)
[2019-09-08 13:58] LABS: URINE BILIRUBIN NEGATIVE (Negative); URINE BLOOD NEGATIVE (Negative); URINE CLARITY CLEAR; URINE COLOR YELLOW; URINE GLUCOSE-RANDOM NEGATIVE (Negative); URINE KETONES NEGATIVE (Negative); URINE LEUKOCYTES-REFLEX NEGATIVE (Negative); URINE NITRITE-REFLEX NEGATIVE (Negative); URINE PROTEIN NEGATIVE (Negative); URINE SPECIFIC GRAVITY 1.025 (1.005-1.030); URINE UROBILINOGEN 0.2 E.U./dl (0.2-1.0)
[2019-09-08 14:04] LABS: PLATELET ESTIMATE ADEQUATE
[2019-09-08] MEDS ORDERED: AZITHROMYCIN 2250 MG PO (14:13)
[2019-09-08] MEDS ORDERED: SUPRAX400 M1 PO (14:13)
[2019-09-08 14:20] VITALS: BP 135/80
== END 2019-09-08 14:20 | disposition home or self-care (01) ==
LOC: M.ERS 13:11
PROVIDERS: Family Medicine
DX: R53.1 Weakness (principal); R53.83 Other fatigue; Z90.89 Acquired absence of other organs

== ENCOUNTER 2019-10-06 12:00 | Emergency (ER) | payer OTHER ==
[~2019-10-06] VITALS: Ht 182.9 cm; Wt 86.2 kg
[~2019-10-06 12:00] MED LIST changes: +SUPRAX400 M1 PO; +WELLBUTRIN SR100 MG PO
[2019-10-06] MEDS ORDERED: PROZAC10 M1 PO (12:11)
[2019-10-06] MEDS ORDERED: NYSTATIN100000 UNI SW&SWALLOW (13:11)
[2019-10-06 13:34] VITALS: BP 130/72
== END 2019-10-06 13:35 | disposition home or self-care (01) ==
LOC: M.ERS 12:00
DX: R07.0 Pain in throat (principal)

== ENCOUNTER 2020-08-31 20:06 | Emergency (ER) | payer OTHER ==
[~2020-08-31] VITALS: Ht 185.4 cm; Wt 95.7 kg
[~2020-08-31 20:06] MED LIST changes: +NYSTATIN100000 UNI SW&SWALLOW; +PROZAC10 M1 PO
[2020-08-31] MEDS ORDERED: VISTARIL 25 MG25 M1 PO (20:13)
[2020-08-31] MEDS ORDERED: CELEXA 20 MG TA20 MG PO (20:13)
[2020-08-31] MEDS ORDERED: ADDERALL 20 MG20 MG PO ×2 (20:14→20:15)
[2020-08-31] MEDS ORDERED: CEPHALEXIN500 MG PO ×2 (21:28→21:32)
[2020-08-31 21:37] VITALS: BP 129/77
== END 2020-08-31 21:37 | disposition home or self-care (01) ==
LOC: M.ERS 20:06
DX: S61.211A Laceration without foreign body of left index finger without damage to nail, initial encounter (principal); Z79.899 Other long term (current) drug therapy; W25.XXXA Contact with sharp glass, initial encounter; Y93.89 Activity, other specified; Y92.89 Other specified places as the place of occurrence of the external cause; Y99.9 Unspecified external cause status

== ENCOUNTER 2021-03-17 18:17 | Emergency (ER) | payer OTHER ==
[~2021-03-17] VITALS: Ht 182.9 cm; Wt 86.2 kg
[~2021-03-17 18:17] MED LIST changes: +ADDERALL 20 MG20 MG PO; +CELEXA 20 MG TA20 MG PO; +CEPHALEXIN500 MG PO; +VISTARIL 25 MG25 M1 PO
[2021-03-17 19:24] LABS: URINE BILIRUBIN NEGATIVE (Negative); URINE BLOOD NEGATIVE (Negative); URINE CLARITY CLEAR; URINE COLOR YELLOW; URINE GLUCOSE-RANDOM NEGATIVE (Negative); URINE KETONES NEGATIVE (Negative); URINE LEUKOCYTES-REFLEX NEGATIVE (Negative); URINE NITRITE-REFLEX NEGATIVE (Negative); URINE PROTEIN NEGATIVE (Negative); URINE UROBILINOGEN 0.2 E.U./dl (0.2-1.0)
[2021-03-17 19:40] LABS: ABSOLUTE BASOPHILS 0.1 thou/uL (0.0-0.2); ABSOLUTE EOSINOPHILS 0.4 thou/uL (0.0-0.7); ABSOLUTE LYMPHOCYTES 2.1 thou/uL (0.8-5.3); ABSOLUTE MONOCYTES 0.5 thou/uL (0.0-1.2); ABSOLUTE NEUTROPHILS 4.3 thou/uL (1.6-8.1); BASOPHILS 1.2 %; EOSINOPHILS 5.2 %; HEMATOCRIT 50.6 % (42.0-52.0); HEMOGLOBIN 16.9 gm/dL (14.0-18.0); LYMPHOCYTES 28.4 %; MCH 31.2 pg (26.0-34.0); MCHC 33.4 g/dL (28.0-37.0); MCV 93.4 fL (80.0-100.0); MONOCYTES 6.6 %; NUCLEATED RBCS 0 /100WBC; PLATELET COUNT* 213 thou/uL (150-400); POLYS 58.6 %; RBC 5.41 mil/uL (4.50-6.00); RDW-CV 13.7 % (10.5-14.5); WBC 7.4 thou/uL (4.0-11.0)
[2021-03-17 19:51] LABS: CALCIUM 8.5 mg/dL (8.5-10.1); CREATININE 1.1 mg/dL (0.6-1.3); POTASSIUM 4.1 mmol/L (3.5-5.1)
[2021-03-17 19:55] LABS: ALBUMIN 4.1 g/dL (3.4-5.0); TOTAL BILIRUBIN 0.5 mg/dL (<0.1-1.0); TOTAL PROTEIN 7.7 g/dL (6.4-8.2)
[2021-03-17 21:24] VITALS: BP 115/75
== END 2021-03-17 21:24 | disposition home or self-care (01) ==
LOC: M.ERS 18:17
PROVIDERS: Physician Assistant
DX: R10.84 Generalized abdominal pain (principal); R63.4 Abnormal weight loss; F41.9 Anxiety disorder, unspecified; F17.210 Nicotine dependence, cigarettes, uncomplicated